=== PATIENT | female | born 1985 | race African-American/Black ===

== ENCOUNTER 2016-09-18 14:07 | Emergency (ER) | payer MEDICAID, OTHER ==
[~2016-09-18] VITALS: Ht 154.9 cm; Wt 55.0 kg
[2016-09-18] MEDS ORDERED: TETANUS, DIPHTHERIA, PERTUSSIS VAC/PF 0.5ML (>7YR OLD) IM ONE (19:00)
[2016-09-18] MEDS ORDERED: LIDOCAINE HCL 1% 20ML VIAL (Pyxis) INJ MC ONE ×2 (19:00→20:15)
[2016-09-18] MEDS ORDERED: BACITRACIN ZINC OINT UDPKT TOP ONE (19:00)
[2016-09-18] MEDS ORDERED: KETOROLAC 60MG/2ML VIAL IM ONE (19:00)
[2016-09-18 20:02] VITALS: BP 120/76
[2016-09-18] MEDS ORDERED: CEFTRIAXONE SODIUM 1 G/VIAL IM ONE (20:15)
== END 2016-09-18 20:52 | disposition home or self-care (01) ==
LOC: ER 14:07
DX: L02.411 Cutaneous abscess of right axilla (principal); J45.909 Unspecified asthma, uncomplicated; F17.210 Nicotine dependence, cigarettes, uncomplicated
CPT/HCPCS: 10060; 81025; 90471; 90715; 96372; 99284; J0696; J1885; J3490; X7700; Z7610

== ENCOUNTER 2016-09-19 22:07 | Emergency (ER) | payer MEDICAID ==
[~2016-09-19] VITALS: Ht 154.9 cm; Wt 54.0 kg
[2016-09-20] MEDS ORDERED: BACITRACIN ZINC OINT UDPKT TOP ONE (03:45)
[2016-09-20] MEDS ORDERED: LIDOCAINE HCL 1% 20ML VIAL (Pyxis) INJ MC ONE (03:45)
[2016-09-20] MEDS ORDERED: KETOROLAC 60MG/2ML VIAL IM ONE (03:45)
[2016-09-20] MEDS ORDERED: CLINDAMYCIN 600 MG in DEXTROSE 5% WATER 50 ML IV ONE (04:00)
[2016-09-20] MEDS ORDERED: KETOROLAC 30MG/ML VIAL IV ONE (04:00)
[2016-09-20] MEDS ORDERED: HYDROCODONE/ACETAMINOPHEN 5/325MG TABLET PO ONE (05:15)
[2016-09-20] MEDS ORDERED: ONDANSETRON 4MG ODT PO ONE (06:00)
[2016-09-20] MEDS ORDERED: MORPHINE SULFATE 10 MG/ML CPJ IM ONE (06:00)
[2016-09-20 07:48] VITALS: BP 145/98
== END 2016-09-20 07:50 | disposition home or self-care (01) ==
LOC: ER 22:07
DX: Z48.00 Encounter for change or removal of nonsurgical wound dressing (principal); L02.411 Cutaneous abscess of right axilla; J45.909 Unspecified asthma, uncomplicated
CPT/HCPCS: 10061; 96365; 96372; 96375; 99284; J1885; J2270; J3490; Z7610; J7060

== ENCOUNTER 2016-09-23 12:26 | Emergency (ER) | payer MEDICAID ==
[~2016-09-23] VITALS: Ht 154.9 cm; Wt 60.0 kg
[2016-09-23 12:59] VITALS: BP 108/75
== END 2016-09-23 14:34 | disposition home or self-care (01) ==
LOC: ER 13:35
DX: Z48.817 Encounter for surgical aftercare following surgery on the skin and subcutaneous tissue (principal); J45.909 Unspecified asthma, uncomplicated; F17.200 Nicotine dependence, unspecified, uncomplicated; F12.10 Cannabis abuse, uncomplicated
CPT/HCPCS: 99281

== ENCOUNTER 2017-04-28 20:04 | Emergency (ER) | payer MEDICAID ==
[~2017-04-28] VITALS: Ht 165.1 cm; Wt 57.0 kg
[2017-04-28 21:37] LABS: CLARITY URINE CLEAR (CLEAR); COLOR URINE YELLOW (YELLOW); KETONES URINE NEGATIVE (NEGATIVE); LEUKOCYTE ESTERASE URINE NEGATIVE (NEGATIVE); NITRITE URINE NEGATIVE (NEGATIVE); OCCULT BLOOD URINE NEGATIVE (NEGATIVE); PH URINE >=9.0 (4.5-8.0); PROTEIN URINE NEGATIVE (NEGATIVE); SPECIFIC GRAVITY URINE 1.023 (1.005-1.030)
[2017-04-28] MEDS ORDERED: ONDANSETRON HCL 4MG/2ML VIAL IV STA (23:03)
[2017-04-28] MEDS ORDERED: KETOROLAC 30MG/ML VIAL IV STA (23:03)
[2017-04-28] MEDS ORDERED: SODIUM CHLORIDE 0.9% 1,000 ML IV ONE (23:03)
[2017-04-29 00:51] LABS: BASOPHILS % 0.2 % (0.0-2.0); EOSINOPHILS % 0.8 % (0.0-5.0); HEMATOCRIT. 31.6 % (36.0-48.0); HEMOGLOBIN. 10.1 g/dL (12.0-16.0); LYMPHOCYTES % 8.1 % (20.0-50.0); MEAN CORPUSCULAR HEMOGLOBIN 26.7 pg (28.0-32.0); MEAN PLATELET VOLUME 7.6 fl (7.4-10.4); MONOCYTES % 4.5 % (2.0-8.0); NEUTROPHILS % 86.4 % (40.0-76.0); PLATELET 295 x1000/uL (130-400); RED BLOOD CELL COUNT 3.76 mill/uL (4.2-5.4); RED CELL DISTRIBUTION WIDTH 16.7 % (11.6-14.6)
[2017-04-29 00:57] LABS: INR 1.2; PROTHROMBIN TIME 12.1 sec (9.4-11.6)
[2017-04-29 00:58] LABS: CHLORIDE 110 mEq/L (98-107)
[2017-04-29 01:05] VITALS: BP 108/71
== END 2017-04-29 02:15 | disposition home or self-care (01) ==
LOC: ER 20:55
DX: R10.84 Generalized abdominal pain (principal); R11.2 Nausea with vomiting, unspecified; F17.200 Nicotine dependence, unspecified, uncomplicated; N83.209 Unspecified ovarian cyst, unspecified side
CPT/HCPCS: 36415; 76856; 80053; 81003; 81025; 83690; 85025; 85610; 96361; 96374; 96375; 99285; J1885; J2405; J7030; Z7610